=== PATIENT | female | born 1990 | race Caucasian/White ===

== ENCOUNTER 2023-01-25 21:22 | Emergency (ER) | payer OTHER ==
[~2023-01-25] VITALS: Ht 157.4 cm; Wt 59.0 kg
[2023-01-25] MEDS ORDERED: LEVETIRACETAM1000 M1 PO (22:37)
[2023-01-25] MEDS ORDERED: ZOLPIDEM10 MG PO (22:37)
[2023-01-25 22:40] LABS: BILIRUBIN Negative (Negative); BLOOD Negative (Negative); CLARITY Clear (Clear); COLOR Yellow (Yellow); GLUCOSE Negative (Negative); KETONE Negative (Negative); LEUKO ESTERASE Negative (Negative); NITRITE Negative (Negative); SPECIFIC GRAVITY <= 1.005 (1.001-1.030); UROBILINOGEN 0.2 E.U./dl (0.0-1.0)
[2023-01-25 22:50] LABS: RBC 0-2 rbc/hpf (0-2); WBC 0-2 wbc/hpf (0-5)
== END 2023-01-25 23:10 | disposition home or self-care (01) ==
LOC: ED 21:22
PROVIDERS: Physician Assistant
DX: F32.A Depression, unspecified (principal); Z88.8 Allergy status to other drugs, medicaments and biological substances